=== PATIENT | female | born 1995 | race Caucasian/White ===

== ENCOUNTER 2019-03-18 09:55 | Emergency (ER) | payer BC, OTHER ==
[2019-03-18 10:15] VITALS: BP 125/70
[2019-03-18] MEDS ORDERED: LORATADINE 10 MG TABLET PO ONE (10:43)
[2019-03-18] MEDS ORDERED: PSEUDOEPHEDRINE HCL 30 MG TABLET PO ONE (10:43)
[2019-03-18] MEDS ORDERED: ACETAMINOPHEN 325 MG TABLET PO ONE (10:43)
--- NOTE | 2019-03-18 10:45 | ER Document Report ---
ED Flu Like - General Chief Complaint: Flu Symptoms Stated Complaint: FLU SYMPTOMS Time Seen by Provider: 03/18/19 10:38 Primary Care Provider: MELY DELGADO MD [COMMUNITY BASED STAFF] - Follow up in 3-5 days Mode of Arrival: Ambulatory Information source: Patient Notes: 23-year-old female presented to ED for cough cold congestion flulike symptoms. She states she also had a sore throat the last 7 days. Patient was nontoxic in appearance in the emergency room. Patient was oriented respirations regular nonlabored speaking in full sentences walks with even steady gait. TRAVEL OUTSIDE OF THE [place] IN LAST 30 DAYS: No - HPI Onset: Last week Timing/Duration: Intermittent Quality of pain: Achy Severity: Mild Pain Level: 1 Associated symptoms: Body/muscle aches, Nonproductive cough, Rhinnorhea, Sinus pain/drainage, Sore throat Similar symptoms previously: Yes Recently seen / treated by doctor: No - Related Data Allergies/Adverse Reactions: Penicillins Allergy (Mild, Verified 03/18/19 10:38) Past Medical History - General Information source: Patient - Social History Smoking Status: Never Smoker Chew tobacco use (# tins/day): No Frequency of alcohol use: None Drug Abuse: None Lives with: Family Family History: Reviewed & Not Pertinent Patient has suicidal ideation: No Patient has homicidal ideation: No - Past Medical History Cardiac Medical History: Reports: None Pulmonary Medical History: Reports: None EENT Medical History: Reports: None Neurological Medical History: Reports: None Endocrine Medical History: Reports: None Renal/ Medical History: Reports: None Malignancy Medical History: Reports: None GI Medical History: Reports: None Musculoskeletal Medical History: Reports None Skin Medical History: Reports None Psychiatric Medical History: Reports: None Traumatic Medical History: Reports: None Infectious Medical History: Reports: None Past Surgical History: Reports: Hx Urinary Tract Surgery - reflux repair - Immunizations Immunizations up to date: Yes Hx Diphtheria, Pertussis, Tetanus Vaccination: Yes Review of Systems - Review of Systems Constitutional: Chills, Fever, Recent illness EENT: Nose discharge, Sinus discharge, Throat pain Cardiovascular: No symptoms reported Respiratory: Cough Gastrointestinal: No symptoms reported Genitourinary: No symptoms reported Female Genitourinary: No symptoms reported Musculoskeletal: Muscle pain Skin: No symptoms reported Hematologic/Lymphatic: No symptoms reported Neurological/Psychological: No symptoms reported Physical Exam - Vital signs Vitals: Temp Pulse Resp BP Pulse Ox 98.1 F 86 16 125/70 97 03/18/19 09:56 03/18/19 09:56 03/18/19 09:56 03/18/19 09:56 03/18/19 09:56 Interpretation: Normal - General General appearance: Appears well, Alert - HEENT Head: Normocephalic, Atraumatic Eyes: Normal Pupils: PERRL Ears: Normal External canal: Normal Tympanic membrane: Normal Sinus: Normal Nasal: Purulent discharge, Swelling Mouth/Lips: Normal Mucous membranes: Normal Pharynx: Post nasal drainage Neck: Normal - Respiratory Respiratory status: No respiratory distress. No: Respiratory distress, Retractions, Tachypnea Chest status: Nontender Breath sounds: Nonproductive cough. No: Rales, Rhonchi, Stridor, Wheezing Chest palpation: Normal - Cardiovascular Rhythm: Regular Heart sounds: Normal auscultation Murmur: No - Abdominal Inspection: Normal Distension: No distension Bowel sounds: Normal Tenderness: Nontender Organomegaly: No organomegaly - Back Back: Normal, Nontender - Extremities General upper extremity: Normal inspection, Nontender, Normal color, Normal ROM, Normal temperature General lower extremity: Normal inspection, Nontender, Normal color, Normal ROM, Normal temperature, Normal weight bearing. No: Edilberto's sign - Neurological Neuro grossly intact: Yes Cognition: Normal Orientation: AAOx4 Katie Coma Scale Eye Opening: Spontaneous Carlotta Coma Scale Verbal: Oriented Carlotta Coma Scale Motor: Obeys Commands Carlotta Coma Scale Total: 15 Speech: Normal Motor strength normal: LUE, RUE, LLE, RLE Sensory: Normal - Psychological Associated symptoms: Normal affect, Normal mood - Skin Skin Temperature: Warm Skin Moisture: Dry Skin Color: Normal Course - Vital Signs Vital signs: Temp Pulse Resp BP Pulse Ox 98.1 F 86 16 125/70 97 03/18/19 10:04 03/18/19 10:04 03/18/19 10:04 03/18/19 10:04 03/18/19 10:04 Discharge - Discharge Clinical Impression: URI (upper respiratory infection) Qualifiers: URI type: unspecified viral URI Qualified Code(s): J06.9 - Acute upper respiratory infection, unspecified Condition: Stable Disposition: HOME, SELF-CARE Additional Instructions: UPPER RESPIRATORY ILLNESS: You have a viral infection of the respiratory passages -- a "cold." This common infection causes nasal congestion, drainage, and often sore throat and cough. It is highly contagious. The disease usually lasts about 10 to 14 days. There is no "cure" for the viral infection -- it must run its course. If there is a complication, such as bacterial infection in the nose, sinuses, middle ear, or bronchial tubes, antibiotics may be required. The antibiotics won't affect the virus. Drink plenty of fluids. A humidifier may help. An expectorant medication or decongestant may make you more comfortable. Use acetaminophen or ibuprofen for fever or aches. See the doctor if fever persists over two days, if there is any significant worsening of your symptoms, or if you simply fail to improve as expected. DECONGESTANT MEDICATION: A decongestant medicine has been prescribed. Often this medicine is combined in the same tablet with an antihistamine or expectorant. This type of medicine is helpful in treating a bad cold or sinus condition, as well as in treatment of the nasal congestion of hay fever. It is not of much benefit for lung infections. Decongestant medicines are related to stimulants. They can cause an inc rease in blood pressure and heart rate. Persons with heart disease and high blood pressure should not take decongestants without discussing this with the physician. If you develop palpitations, chest pain, headache, or tremors, stop the medicine and consult your physician. COUGH-SUPPRESSANT & EXPECTORANT MEDICATION: You are to use a cough medication as needed for relief of symptoms. This medicine is a combination of an expectorant (to make the mucous thinner and more easily "coughed up") and a cough suppressant (to reduce the frequency of coughing). The cough-suppressant medicine is related to narcotics. You may experience mild nausea and sleepiness. Some patients who are very sensitive to narcotics may have stomach pain from this medicine. Taking the medicine with food reduces these side effects. Do not drive or work with machinery until you know how this medicine affects you. The expectorant should have no side effects. Iodine-containing expectorants (such as organidin) should not be taken by persons with active thyroid disease unless approved by your doctor. Call the doctor if you develop shortness of breath, hives, rash, itching, lightheadedness, or severe nausea and vomiting. You were treated with Claritin 10 mg Sudafed 30 mg and you have been taken Mucinex 600 mg. These are all tsuq-xlx-hobstvl medications for cough cold congestion. You do need to call the go to the pharmacist to get the Sudafed from behind the counter please get a little red pills they are more effective. He could also use Flonase which is fymc-oll-jgmgbrh 1 spray each nostril twice a day. He could also use salt soda solution gargles. These will help to remove the drainage from the back your throat. Chloraseptic spray was mfsn-rfb-klsmpln that will also help with your sore throat. Salt and soda solution gargle 1 quart of water 1 tablespoon of salt 1 teaspoon of baking soda Mixed 3 ingredients together and boil for 1 minute Placed in a covered quart jar Use 1/2 ounce of cold solution to gargle 3 times a day FOLLOW-UP CARE: If you have been referred to a physician for follow-up care, call the physicians office for an appointment as you were instructed or within the next two days. If you experience worsening or a significant change in your symptoms, notify the physician immediately or return to the Emergency Department at any time for re-evaluation. Forms: Return to Work Referrals: MELY DELGADO MD [COMMUNITY BASED STAFF] - Follow up in 3-5 days
== END 2019-03-18 11:06 | disposition home or self-care (01) ==
LOC: ER 09:55
DX: J06.9 Acute upper respiratory infection, unspecified (principal); M79.10 Myalgia, unspecified site; Z88.0 Allergy status to penicillin
CPT/HCPCS: 99283

== ENCOUNTER 2019-05-23 18:49 | Emergency (ER) | payer OTHER ==
--- NOTE | 2019-05-23 19:00 | ER Document Report ---
ED Flu Like - General Chief Complaint: Flu Symptoms Stated Complaint: FLU SYMPTOMS Time Seen by Provider: 05/23/19 18:55 Mode of Arrival: Ambulatory Information source: Patient Notes: 24-year-old female presented to ED for complaint of cough cold congestion and diarrhea. Is alert oriented respirations regular nonlabored speaking in full sentences. She does have obvious signs and symptoms of cough and cold or possible flu. Flu test urine test and chest x-ray were completed and were negative. TRAVEL OUTSIDE OF THE [place] IN LAST 30 DAYS: No - HPI Onset: Other Timing/Duration: Intermittent - 3 days ago Quality of pain: Achy, Burning, Sharp Severity: Moderate Pain Level: 3 Associated symptoms: Body/muscle aches, Chills, Productive cough, Diarrhea, Fever, Rhinnorhea, Sinus pain/drainage Similar symptoms previously: Yes Recently seen / treated by doctor: No - Related Data Allergies/Adverse Reactions: Penicillins Allergy (Mild, Verified 05/23/19 19:00) Past Medical History - General Information source: Patient - Social History Smoking Status: Former Smoker Frequency of alcohol use: Occasional Drug Abuse: None Occupation: None Lives with: Family Family History: Reviewed & Not Pertinent Patient has suicidal ideation: No Patient has homicidal ideation: No - Past Medical History Cardiac Medical History: Reports: Hx Hypertension - Pulmonary Medical History: Reports: None EENT Medical History: Reports: None Neurological Medical History: Reports: None Endocrine Medical History: Reports: None Renal/ Medical History: Reports: Other - Kidney reflux and post eclampsia Malignancy Medical History: Reports: None - Cramps here during GI Medical History: Reports: None Musculoskeletal Medical History: Reports Hx Musculoskeletal Deformity, Reports Hx Musculoskeletal Trauma Skin Medical History: Reports None Psychiatric Medical History: Reports: Hx Depression - depression Traumatic Medical History: Reports: Hx Fractures - Hip and knee Infectious Medical History: Reports: None Past Surgical History: Reports: Hx Section, Hx Urinary Tract Surgery - reflux repair - Immunizations Immunizations up to date: Yes Hx Diphtheria, Pertussis, Tetanus Vaccination: Yes - 2015 Review of Systems - Review of Systems Constitutional: No symptoms reported EENT: Nose congestion, Nose discharge, Sinus pressure, Sinus discharge Cardiovascular: No symptoms reported Respiratory: Cough Gastrointestinal: Diarrhea Genitourinary: No symptoms reported Female Genitourinary: No symptoms reported Musculoskeletal: No symptoms reported Skin: No symptoms reported Hematologic/Lymphatic: No symptoms reported Neurological/Psychological: No symptoms reported -: Yes All other systems reviewed and negative Physical Exam - Vital signs Vitals: Temp Pulse Resp BP Pulse Ox 98.2 F 99 18 128/63 H 96 05/23/19 18:53 05/23/19 18:53 05/23/19 18:53 05/23/19 18:53 05/23/19 18:53 Interpretation: Normal - General General appearance: Appears well, Alert - HEENT Head: Normocephalic, Atraumatic Eyes: Normal Pupils: PERRL Ears: Normal External canal: Normal Tympanic membrane: Normal Sinus: Normal Nasal: Purulent discharge, Swelling Mouth/Lips: Normal Mucous membranes: Normal Pharynx: Normal Neck: Normal - Respiratory Respiratory status: No respiratory distress Chest status: Nontender Breath sounds: Productive cough Chest palpation: Normal - Cardiovascular Rhythm: Regular Heart sounds: Normal auscultation Murmur: No - Abdominal Inspection: Normal Distension: No distension Bowel sounds: Normal Tenderness: Nontender Organomegaly: No organomegaly - Back Back: Normal, Nontender - Extremities General upper extremity: Normal inspection, Nontender, Normal color, Normal ROM, Normal temperature General lower extremity: Normal inspection, Nontender, Normal color, Normal ROM, Normal temperature, Normal weight bearing. No: Edilberto's sign - Neurological Neuro grossly intact: Yes Cognition: Normal Orientation: AAOx4 Katie Coma Scale Eye Opening: Spontaneous Bondurant Coma Scale Verbal: Oriented Bond[place]ant Coma Scale Motor: Obeys Commands Katie Coma Scale Total: 15 Speech: Normal Motor strength normal: LUE, RUE, LLE, RLE Sensory: Normal - Psychological Associated symptoms: Normal affect, Normal mood - Skin Skin Temperature: Warm Skin Moisture: Dry Skin Color: Normal Course - Re-evaluation Re-evalutation: 05/23/19 20:15 After performing a Medical Screening Examination, I estimate there is LOW risk for ACUTE CORONARY SYNDROME, RESPIRATORY FAILURE, SEPSIS OR MENINGITIS, thus I consider the discharge disposition reasonable. I have reevaluated this patient multiple times and no significant life threatening changes are noted. The patient and I have discussed the diagnosis and risks, and we agree with discharging home with close follow-up. We also discussed returning to the Emergency Department immediately if new or worsening symptoms occur. We have discussed the symptoms which are most concerning (e.g., changing or worsening pain, trouble swallowing or breathing, neck stiffness, fever) that necessitate immediate return. - Vital Signs Vital signs: Temp Pulse Resp BP Pulse Ox 98.2 F 99 18 128/63 H 96 05/23/19 18:53 05/23/19 18:53 05/23/19 18:53 05/23/19 18:53 05/23/19 18:53 - Laboratory Laboratory results interpreted by me: 05/23/19 19:20 Urine Protein 30 H - Diagnostic Test Radiology reviewed: Image reviewed, Reports reviewed Discharge - Discharge Clinical Impression: Viral respiratory illness Diarrhea Qualifiers: Diarrhea type: unspecified type Qualified Code(s): R19.7 - Diarrhea, unspecified Condition: Stable Disposition: HOME, SELF-CARE Instructions: Use of Njen-Kqj-Umllvtu Ibuprofen ([facility]) Additional Instructions: Viral Syndrome The physician has diagnosed a viral infection. Viruses not only cause "colds," but can cause many different symptoms including generalized aching, fever, headache, cough, diarrhea, nausea, vomiting, and fatigue. The treatment, for the most part, is simply relief of symptoms. This means that antibiotics are usually not given. Rest, fluids, pain medications and, occasionally, medication for the specific symptoms that are most bothersome will be prescribed. Use good handwashing to avoid passing the virus to others. Shared toys should be cleaned with disinfectant. Clean the toilets, sinks, and counter surfaces in bathrooms. Launder clothing in hot water. Contact the physician if you develop any new or unusual symptoms such as severe headache, stiff neck, high fever, chest pain, productive cough, or shortness of breath. You should be rechecked if you don't see marked improvement within seven to 10 days. UPPER RESPIRATORY ILLNESS: You have a viral infection of the respiratory passages -- a "cold." This common infection causes nasal congestion, drainage, and often sore throat and cough. It is highly contagious. The disease usually lasts about 10 to 14 days. There is no "cure" for the viral infection -- it must run its course. If there is a complication, such as bacterial infection in the nose, sinuses, middle ear, or bronchial tubes, antibiotics may be required. The antibiotics won't affect the virus. Drink plenty of fluids. A humidifier may help. An expectorant medication or decongestant may make you more comfortable. Use acetaminophen or ibuprofen for fever or aches. See the doctor if fever persists over two days, if there is any significant worsening of your symptoms, or if you simply fail to improve as expected. You have been recommended treatment with Claritin 10 mg Sudafed 30 mg and Mucinex 600 mg. These are all osfz-lhv-tlzccxe medications for cough cold congestion. You do need to call the go to the pharmacist to get the Sudafed from behind the counter please get a little red pills they are more effective. You could also use Flonase which is avrz-fjz-ritqgtv 1 spray each nostril twice a day. You could also use salt soda solution gargles. These will help to remove the drainage from the back your throat. Chloraseptic spray was odyo-aya-uqtwlar that will also help with your sore throat. Salt and soda solution gargle 1 quart of water 1 tablespoon of salt 1 teaspoon of baking soda Mixed 3 ingredients together and boil for 1 minute Placed in a covered quart jar Use 1/2 ounce of cold solution to gargle 3 times a day USE OF ACETAMINOPHEN (Tylenol): Acetaminophen may be taken for pain relief or fever control. It's much safer than aspirin, offering a wider range of "safe" dosages. It is safe during . Some brand names are Tylenol, Panadol, Datril, Anacin 3, Tempra, and Liquiprin. Acetaminophen can be repeated every four hours. The following are maximum recommended dosages: >89 pounds or adults 650 mg to 900 mg Acetaminophen can be repeated every four hours. Maximum dose not to exceed 4000 mg a day. FOLLOW-UP CARE: If you have been referred to a physician for follow-up care, call the physicians office for an appointment as you were instructed or within the next two days. If you experience worsening or a significant change in your symptoms, notify the physician immediately or return to the Emergency Department at any time for re-evaluation. Call your doctor within the next 24 to 48 hours and schedule appointment within the next 3 to 5 days.
[2019-05-23 19:36] LABS: APPEARANCE,URINE SLIGHTLY-CLOUDY; BILIRUBIN,URINE NEGATIVE (NEGATIVE); COLOR,URINE YELLOW; GLUCOSE, URINE NEGATIVE (NEGATIVE); KETONES,URINE NEGATIVE (NEGATIVE); PROTEIN,URINE 30 mg/dL (NEGATIVE); UROBILINOGEN,URINE NEGATIVE mg/dL (<2.0)
--- NOTE | 2019-05-23 19:48 | RADIOLOGY REPORT (SQ) ---
EXAM DESCRIPTION: CHEST 2 VIEWS COMPLETED DATE/TIME: 05/23/2019 7:29 pm REASON FOR STUDY: Cough congestion fever COMPARISON: None. NUMBER OF VIEWS: Two view. TECHNIQUE: Frontal and lateral radiographic views of the chest acquired. LIMITATIONS: None. FINDINGS: LUNGS AND PLEURA: Peribronchial cuffing and interstitial changes. No consolidation, effus ion, or pneumothorax. MEDIASTINUM AND HILAR STRUCTURES: No masses. No contour abnormalities. HEART AND VASCULAR STRUCTURES: Heart normal in size and contour. No evidence for failure. BONES: No acute findings. HARDWARE: None in the chest. OTHER: No other significant finding. IMPRESSION: REACTIVE AIRWAY DISEASE VERSUS VIRAL SYNDROME. NO CONSOLIDATION. TECHNICAL DOCUMENTATION: JOB ID: [id number] [id number] 2010 [employer]- All Rights Reserved Reading location - IP/workstation name: [email or web address]
[2019-05-23 19:52] LABS: A TYPE INFLUENZA AG NEGATIVE (NEGATIVE); B INFLUENZA AG NEGATIVE (NEGATIVE)
[2019-05-23 20:17] VITALS: BP 132/59
== END 2019-05-23 20:15 | disposition home or self-care (01) ==
LOC: ER 18:49
DX: J98.8 Other specified respiratory disorders (principal); B97.89 Other viral agents as the cause of diseases classified elsewhere; R19.7 Diarrhea, unspecified; R05 Cough; M79.10 Myalgia, unspecified site; R50.9 Fever, unspecified; J34.89 Other specified disorders of nose and nasal sinuses; R09.81 Nasal congestion; Z87.891 Personal history of nicotine dependence; Z88.0 Allergy status to penicillin
CPT/HCPCS: 71046; 81001; 81025; 87804; 99283

== ENCOUNTER 2019-08-13 07:28 | Emergency (ER) | payer OTHER ==
[2019-08-13 07:32] VITALS: BP 125/78
[2019-08-13 08:11] LABS: APPEARANCE,URINE SLIGHTLY-CLOUDY; BILIRUBIN,URINE NEGATIVE (NEGATIVE); COLOR,URINE YELLOW; GLUCOSE, URINE NEGATIVE (NEGATIVE); KETONES,URINE NEGATIVE (NEGATIVE); LEUKOCYTE ESTERASE,URINE TRACE (NEGATIVE); NITRITE,URINE NEGATIVE (NEGATIVE); PROTEIN,URINE 30 mg/dL (NEGATIVE); UROBILINOGEN,URINE NEGATIVE mg/dL (<2.0)
--- NOTE | 2019-08-13 08:22 | ER Document Report ---
ED Neck/Back Problem - General Chief Complaint: Back Pain Stated Complaint: LOW BACK PAIN Time Seen by Provider: 08/13/19 08:06 Notes: CHIEF COMPLAINT: Left lower back pain HPI: 24-year-old female presenting to the emergency department complaining of left lower back pain that woke her from sleep around 3 AM. Reports it as a pinching sensation. Discomfort is worse with movement. No flank or abdominal pain. Denies dysuria. Denies nausea vomiting. Denies fever. Patient was concerned about shingles, states she has had shingles before but has not seen a rash. Took no medication for her symptoms. Patient also reports a history of UTI ROS: See HPI - all other systems were reviewed and are otherwise negative Constitutional: no fever Eyes: no drainage, no blurred vision ENT: no runny nose, no sore throat Cardiovascular: no chest pain Resp: no SOB, no cough GI: no vomiting, no diarrhea, no abdominal pain : no dysuria Integumentary: no rash Allergy: no hives Musculoskeletal: no extremity pain or swelling, positive back pain Neurological: no numbness/tingling, no weakness MEDICATIONS: I agree with the patient medications as charted by the RN. ALLERGIES: I agree with the allergies as charted by the RN. PAST MEDICAL HISTORY/PAST SURGICAL HISTORY: Reviewed and agree as charted by RN. SOCIAL HISTORY: Reviewed and agree as charted by RN. FAMILY HISTORY: No significant familial comorbid conditions directly related to patient complaint EXAM: Reviewed vital signs as charted by RN. CONSTITUTIONAL: Alert and oriented and responds appropriately to questions. Well-appearing; well-nourished, no acute distress HEAD: Normocephalic; atraumatic EYES: Conjunctivae clear, sclerae non-icteric ENT: normal nose; no rhinorrhea; moist mucous membranes; pharynx without lesions noted, no uvula edema or deviation, no tonsillar hypertrophy, phonation normal NECK: Supple without meningismus; non-tender; no cervical lymphadenopathy, no masses CARD: RRR; no murmurs, no clicks, no rubs, no gallops; symmetric distal pulses RESP: Normal chest excursion without splinting or tachypnea; breath sounds clear and equal bilaterally; no wheezes, no rhonchi, no rales, pulse oximetry 98% on room air not hypoxic ABD/GI: Normal bowel sounds; non-distended; soft, non-tender, no rebound, no guarding; no palpable organomegaly or masses. BACK: The back appears normal and is non-tender to palpation directly over the lumbar and thoracic spine. There is mild left lateral lumbar muscular tenderness on palpation with no visible rash, there is no CVA tenderness EXT: Normal ROM in all joints; non-tender to palpation; no cyanosis, no effusi ons, no edema SKIN: Normal color for age and race; warm; dry; good turgor; no acute lesions noted NEURO: Moves all extremities equally; Motor and sensory function intact PSYCH: The patient's mood and manner are appropriate. Grooming and personal hygiene are appropriate. MDM: 24-year-old female with left lower back pain, there is some reproducibility to the discomfort suggesting a muscular origin, unlikely to be kidney stone as she has reproducible pain, will await urinalysis to see if patient has significant hematuria which would suggest need for further imaging, she has no flank or abdominal pain. No fevers TRAVEL OUTSIDE OF THE [place] IN LAST 30 DAYS: No - Related Data Allergies/Adverse Reactions: Penicillins Allergy (Mild, Verified 05/23/19 19:00) Past Medical History - Social History Smoking Status: Never Smoker Family History: Reviewed & Not Pertinent Patient has homicidal ideation: No - Past Medical History Cardiac Medical History: Reports: Hx Hypertension - Musculoskeletal Medical History: Reports Hx Musculoskeletal Deformity, Reports Hx Musculoskeletal Trauma Psychiatric Medical History: Reports: Hx Depression - depression Traumatic Medical History: Reports: Hx Fractures - Hip and knee Infectious Medical History: Denies: Hx MRSA Past Surgical History: Reports: Hx Section, Hx Urinary Tract Surgery - reflux repair - Immunizations Immunizations up to date: Yes Hx Diphtheria, Pertussis, Tetanus Vaccination: Yes - 2015 Physical Exam - Vital signs Vitals: Temp Pulse Resp BP Pulse Ox 97.7 F 76 16 125/78 97 08/13/19 07:31 08/13/19 07:31 08/13/19 07:31 08/13/19 07:31 08/13/19 07:31 Course - Re-evaluation Re-evalutation: 08/13/19 08:30 Urinalysis does not show evidence of significant hematuria or leukocytosis to suggest kidney stone or UTI. Will treat with anti-inflammatories at this time give patient precautions for return for worsening pain or onset of rash - Vital Signs Vital signs: Temp Pulse Resp BP Pulse Ox 98.2 F 76 16 125/78 97 08/13/19 07:53 08/13/19 07:31 08/13/19 07:31 08/13/19 07:31 08/13/19 07:31 - Laboratory Laboratory results interpreted by me: 08/13/19 07:35 Urine Protein 30 H Ur Leukocyte Esterase TRACE H Discharge - Discharge Clinical Impression: Lower back pain Qualifiers: Chronicity: acute Back pain laterality: left Sciatica presence: without sciatica Qualified Code(s): M54.5 - Low back pain Condition: Stable Disposition: HOME, SELF-CARE Additional Instructions: The urinalysis did not show evidence of infection today. There was not significant blood to suggest kidney stone at this time. Take the Voltaren to help with the pain and discomfort use warm compresses to the lower back to help with spasm and pain. Follow-up with your primary care provider in 2 to 3 days for recheck and reevaluation of symptoms. If you develop a rash to the area either follow-up sooner with your PCP or return for reevaluation. If you develop nausea vomiting or fever return to the emergency department Prescriptions: Diclofenac Sodium [Voltaren 50 Mg Tablet.] 50 mg PO BID #20 tablet. Referrals: NÉSTOR BARONE MD [COMMUNITY BASED STAFF] - Follow up as needed
== END 2019-08-13 08:30 | disposition home or self-care (01) ==
LOC: ER 07:28
DX: M54.5 Low back pain (principal); Z88.0 Allergy status to penicillin
CPT/HCPCS: 81001; 81025; 99283

== ENCOUNTER 2019-12-15 14:32 | Emergency (ER) | payer OTHER ==
[2019-12-15] MEDS ORDERED: HYDROCODONE/ACETAMINOPHEN 5-325 MG TABLET PO ONE (14:56)
--- NOTE | 2019-12-15 15:00 | ER Document Report ---
ED Extremity Problem, Lower - General Chief Complaint: Fall Injury Stated Complaint: FALL/RIGHT ANKLE PAIN, SWELLING Time Seen by Provider: 12/15/19 14:50 Primary Care Provider: WILFREDO ADAMS MD [ACTIVE STAFF] - 12/17/19 Mode of Arrival: Wheelchair Information source: Patient Notes: 24-year-old female presents to ED for complaint of pain to the right foot and ankle. She states she was carrying her son out of the house when she tripped over a loose brick. She states she started to fall so she twisted herself to protect her son and ended up landing on her ankle. She states when she landed she heard multiple cracks and then fell to the ground. She stated the the son does not have any injuries because he landed on top of her. She is alert oriented respirations regular nonlabored speaking in full sentences. Her right ankle is very swollen bruised and tender to palpation. Was immediately elevated and ice applied and patient was sent to x-ray after receiving a De Peyster for her pain REVIEW OF SYSTEMS: CONSTITUTIONAL : Denies fever, chills, or sweats. Denies recent illness. EENT: Denies eye, ear, throat, or mouth pain or symptoms. Denies nasal or si nus congestion. CARDIOVASCULAR: Denies chest pain. RESPIRATORY: Denies cough, cold, or chest congestion. Denies shortness of breath, difficulty breathing, or wheezing. GASTROINTESTINAL: Denies abdominal pain. Denies nausea, vomiting, or diarrhea. Denies constipation. GENITOURINARY: Denies difficulty urinating, painful urination, burning, frequency, or blood in urine. FEMALE GENITOURINARY: Denies vaginal bleeding, abnormal or irregular periods. MUSCULOSKELETAL: Patient steps she tripped over a loose brick while carrying her son. She states she twisted herself to protect her son and fell and heard multiple pops and cracks when she fell. She does have a very swollen ecchymotic tender foot and ankle SKIN: Denies rash or skin lesions. HEMATOLOGIC : Denies easy bruising or bleeding. LYMPHATIC: Denies swollen, enlarged glands. NEUROLOGICAL: Denies altered mental status or loss of consciousness. Denies headache. Denies weakness or paralysis or loss of use of either side. Denies problems with gait or speech. Denies sensory or motor loss. PSYCHIATRIC: Denies anxiety or stress or depression. ALL OTHER SYSTEMS REVIEWED AND NEGATIVE. PHYSICAL EXAMINATION: GENERAL: Well-appearing, well-nourished and in no acute distress. HEAD: Atraumatic, normocephalic. EYES: Pupils equal round and reactive to light, extraocular movements intact, sclera anicteric, conjunctiva are normal. ENT: nares patent, oropharynx clear without exudates. Moist mucous membranes. NECK: Normal range of motion, supple without lymphadenopathy LUNGS: Breath sounds clear to auscultation bilaterally and equal. No wheezes rales or rhonchi. HEART: Regular rate and rhythm without murmurs ABDOMEN: Soft, nontender, normoactive bowel sounds. No guarding, no rebound. No masses appreciated. EXTREMITIES: Very swollen tender ecchymotic left ankle. She does have palpable pedal pulses. NEUROLOGICAL: No focal neurological deficits. Moves all extremities spontaneously and on command. PSYCH: Normal mood, normal affect. SKIN: Warm, Dry, normal turgor, no rashes or lesions noted. TRAVEL OUTSIDE OF THE [place] IN LAST 30 DAYS: No - HPI Patient complains to provider of: Injury, Pain, Swelling Location: Ankle, Foot Occurred: Just prior to arrival Where: Home, Outdoors Onset/Duration: Sudden Quality of pain: Sharp, Throbbing Severity: Moderate Pain Level: 3 Context: Twisted Recent injury: Yes Associated symptoms: Ware a crack, Unable to bear weight Exacerbated by: Hanging down, Movement, Other - Unable to walk Relieved by: Elevation, Ice, Rest - Related Data Allergies/Adverse Reactions: Penicillins Allergy (Mild, Verified 12/15/19 14:56) Past Medical History - General Information source: Patient - Social History Smoking Status: Never Smoker Frequency of alcohol use: None Drug Abuse: None Lives with: Alone - inflant son Family History: Reviewed & Not Pertinent Patient has suicidal ideation: No Patient has homicidal ideation: No - Past Medical History Cardiac Medical History: Reports: Hx Hypertension - Pulmonary Medical History: Reports: None EENT Medical History: Reports: None Neurological Medical History: Reports: None Endocrine Medical History: Reports: None Renal/ Medical History: Reports: None Malignancy Medical History: Reports: None GI Medical History: Reports: None Musculoskeletal Medical History: Reports Hx Musculoskeletal Deformity, Reports Hx Musculoskeletal Trauma Skin Medical History: Reports None Psychiatric Medical History: Reports: Hx Depression - depression Traumatic Medical History: Reports: Hx Fractures - Hip and knee Past Surgical History: Reports: Hx Section, Hx Urinary Tract Surgery - reflux repair - Immunizations Immunizations up to date: Yes Hx Diphtheria, Pertussis, Tetanus Vaccination: Yes - 2015 Physical Exam - Vital signs Vitals: Temp Pulse Resp BP Pulse Ox 98.6 F 96 20 142/99 H 100 12/15/19 14:46 12/15/19 14:46 12/15/19 14:46 12/15/19 14:46 12/15/19 14:46 Course - Re-evaluation Re-evalutation: 12/15/19 19:[address] Adams at 1610 today concerning her trimalleolar fracture with widening of the medial mortise. I did explain to him that it looked like it was a very unstable fracture did he need to come in and admit the patient. He stated no this was something that could be splinted in a stirrup splint and posterior ankle have her not weight-bear and he would see her morning. Patient was treated with a stirrup and posterior splint she was given crutches she was instructed not to weight-bear not to touch the toe to the floor. She was medicated with De Peyster and discharged home with a De Peyster dispense pack. Patient did try to call her primary care doctor and [facility] to get approval to be seen by the export specialist on morning she did say that [facility] was not going to approve her being follow-up with orthopedic for at least 5 to 10 days. I did explain to patient if she could not be seen by the orthopedic on as Dr. Adams, she should be seen by an another hospital or provider as this appeared to be an unstable fracture and she should not walk on this leg. Patient verbalized understanding of these instructions and stated she would follow-up promptly. 12/15/19 19:51 Patient was given a written report of her x-ray as well as a disc of her x-ray to follow-up. She was also given a De Peyster dispense pack. She was assisted to be loaded into her car with her mother driving her. - Vital Signs Vital signs: Temp Pulse Resp BP Pulse Ox 98.4 F 76 19 138/82 H 99 12/15/19 17:01 12/15/19 17:01 12/15/19 17:01 12/15/19 16:59 12/15/19 17:01 - Diagnostic Test Radiology reviewed: Image reviewed, Reports reviewed Discharge - Discharge Clinical Impression: Fracture tibia/fibula Qualifiers: Encounter type: initial encounter Fracture type: closed Laterality: right Qualified Code(s): S82.201A - Unspecified fracture of shaft of right tibia, initial encounter for closed fracture Condition: Stable Disposition: HOME, SELF-CARE Additional Instructions: Fracture of Distal Fibula You have a fracture at the end of the fibula, the smaller bone in the lower leg. The fracture is across the bony bump on the outer side of the ankle. This fracture will usually heal well, but must be protected from the pull of ligaments and tendons at the ankle. If this fracture rotates out of position (or is felt likely to rotate), it must be operated on. Initially, the extremity should be kept elevated, with ice packs applied frequently. This fracture is usually treated with a cast or walking boot. If a walking boot has been selected, it's critical that it NOT be removed without the doctor's approval, not even for sleeping or baths. Healing of this fracture takes about four to eight weeks. Younger patients heal more quickly. An X-ray is usually required during healing to check for complications and to assess healing. Call the doctor or return at once if there is severe swelling, increasing pain, or numbness in the foot. Fractured Tibia You have a fracture of the lateral malleolus. The physician has assessed the seriousness of this fracture and has determined that no operation or hospitalization is required. The fracture should heal well, but must be monitored by re-examination and possibly X-rays. The initial treatment of this fracture is immobilization, ice packs, and elevation. A tibial fracture requires protection for about four to eight weeks, depending on the nature of the fracture and the age of the patient. Usually, a long-leg cast is required. Often no weight-bearing can be allowed at first despite casting. This type of fracture sometimes does not heal well. You MUST follow the doctors instructions, and call the doctor if you have any problems. Call the doctor or return at once if pain becomes severe, or if numbness or weakness develops in the foot or toes. Splint Pending Casting Your injury can't be casted until the swelling has subsided. Therefore, a temporary splint has been placed to protect the injury. Full use of an injured area is not possible in a splint. You should follow the doctor's instructions concerning rest, ice, and elevation of the injury. Never do anything which causes pain under the splint. Keep the splint on ALL THE TIME until you return for casting. If there is unexpected severe pain, or numbness, discoloration, or swelling beyond the splint, you should return at once. USE OF CRUTCHES: The doctor has recommended that you not bear weight at this time. You will need to use crutches. Adjust the crutches so the tops come to about two inches under the armpit while you are standing upright. Use your hands -- not your armpits -- to support your weight. To get into a chair, support yourself with one crutch on the injured side. Hold the chair with the other hand, then lower yourself while putting all your weight on the good leg. Going up stairs is `good leg up, step up, then bring up crutches and bad leg.' Down stairs is `bad leg and crutches down, then bring good leg down.' If you develop numbness or swelling in an arm or hand, you are using the crutches incorrectly. Return if you are having any problems with the crutches. ICE & ELEVATION: Apply ice packs frequently against the painful area. Many different schedules are recommended, such as "20 minutes on, 20 minutes off" or "one hour ice, two hours rest." If you need to work, you may need to go longer between ice treatments. You should plan to have the area ice packed AT LEAST one-fourth of the time. The ice should be applied over the wrap, tape, or splint, or over a layer of cloth -- not directly against the skin. Some ice bags have a built-in cloth and can be put directly on the skin. Your injured part should be elevated as much as possible over the next 48 hours. Try to keep the injury above the level of the heart. Avoid use of the injured area. Elevation and rest will decrease the swelling. USE OF [id number] IBUPROFEN: Ibuprofen (Advil, Nuprin, Medipren, Motrin IB) is a medication for fever and pain control. In addition, it has anti- inflammatory effects which may be beneficial, especially in the treatment of injuries. It's best to take ibuprofen with food. Persons with ulcer disease or allergy to aspirin should notify their physician of this before taking ibuprofen. Ibuprofen can be given every four to six hours, for a total of four doses daily. Age Pain or fever dose Antiinflammatory dose 6-8 yr 200 mg (1 tab) 200 mg (1 tab) 9-11 yr 200 mg (1 tab) 200-400 mg (1-2 tab) 11-14 yr 200-400 mg (1-2 tab) 400 mg (2 tab) 15-adult 400 mg (2 tab) 600 mg (3 tab) ORAL NARCOTIC MEDICATION: You have been given a De Peyster dispense pack for pain control. This medication is a narcotic. It's best taken with food, as nausea can result if taken on an empty stomach. Don't operate machinery or drive within six hours of taking this medication. Do not combine this medicine with alcohol, or with any medication which can cause sedation (such as cold tablets or sleeping pills) unless you get permission from the physician. Narcotics tend to cause constipation. If possible, drink plenty of fluids and eat a diet high in fiber and fruits. Please be aware that prescription narcotics also have the potential for abuse. People become addicted to these medications because of the general sense of wellbeing that they induce. This feeling along with a significant reduction in tension, anxiety, and aggression provides a stimulating seductive quality to these drugs. Once your pain is under control, we encourage you to discard your unused narcotics. FOLLOW-UP CARE: If you have been referred to a physician for follow-up care, call the physicians office for an appointment as you were instructed or within the next two days. If you experience worsening or a significant change in your symptoms, notify the physician immediately or return to the Emergency Department at any time for re-evaluation. Forms: Elevated Blood Pressure, Special Work Note Referrals: WILFREDO ADAMS MD [ACTIVE STAFF] - 12/17/19
--- NOTE | 2019-12-15 16:11 | RADIOLOGY REPORT (SQ) ---
EXAM DESCRIPTION: ANKLE RIGHT COMPLETE IMAGES COMPLETED DATE/TIME: 12/15/2019 3:38 pm REASON FOR STUDY: fell head multiple crack pain swelling COMPARISON: None. NUMBER OF VIEWS: Three views. TECHNIQUE: AP, lateral, and oblique radiographic images acquired of the right ankle. LIMITATIONS: None. FINDINGS: Trimalleolar fracture with widening of the medial mortise. Medial displacement of the med ial malleolar fragment. IMPRESSION: Trimalleolar fracture. TECHNICAL DOCUMENTATION: JOB ID: [id number] 2010 [employer]- All Rights Reserved Reading location - IP/workstation name: [email or web address]
[2019-12-15] MEDS ORDERED: HYDROCODONE/ACETAMINOPHEN 5-325 MG (6 TAB/ER DISP) PO PRN (16:19)
[2019-12-15 17:00] VITALS: BP 138/82
== END 2019-12-15 17:00 | disposition home or self-care (01) ==
LOC: ER 14:32
DX: S82.851A Displaced trimalleolar fracture of right lower leg, initial encounter for closed fracture (principal); W10.9XXA Fall (on) (from) unspecified stairs and steps, initial encounter; Y93.89 Activity, other specified; Y92.009 Unspecified place in unspecified non-institutional (private) residence as the place of occurrence of the external cause
CPT/HCPCS: 99283

== ENCOUNTER 2019-12-24 06:20 | Day surgery (SDC) | payer OTHER ==
[2019-12-24] MEDS ORDERED: CEFAZOLIN 2 GM/D5W RTU 2 GM/50 ML RTUPB IV PRN (06:59)
[2019-12-24] MEDS ORDERED: TRANEXAMIC ACID 1,000 MG in DEXTROSE 5%-WATER 50 ML IV PRN (07:00)
[2019-12-24] MEDS ORDERED: OXYCODONE HCL SR 10 MG TABLET PO PRN (07:00)
[2019-12-24] MEDS ORDERED: CEFAZOLIN 2 GM/D5W RTU 2 GM/50 ML RTUPB IV ONE (07:55)
[2019-12-24] MEDS ORDERED: OXYCODONE HCL SR 10 MG TABLET PO ONE (07:55)
[2019-12-24 08:21] LABS: APPEARANCE,URINE SLIGHTLY-CLOUDY; BILIRUBIN,URINE NEGATIVE (NEGATIVE); GLUCOSE, URINE NEGATIVE (NEGATIVE); KETONES,URINE NEGATIVE (NEGATIVE); LEUKOCYTE ESTERASE,URINE TRACE (NEGATIVE); NITRITE,URINE NEGATIVE (NEGATIVE); PROTEIN,URINE 100 mg/dL (NEGATIVE); URINE SPECIFIC GRAVITY 1.031
[2019-12-24 08:22] LABS: COLOR,URINE DARK YELLOW
[2019-12-24 09:00] LABS: ABSOLUTE EOSINOPHILS # (AUTO) 0.3 10^3/uL (0.0-0.6); ABSOLUTE LYMPHOCYTES (AUTO) 0.9 10^3/uL (0.5-4.7); ABSOLUTE MONOCYTES (AUTO) 0.8 10^3/uL (0.1-1.4); ABSOLUTE NEUT (AUTO) 5.5 10^3/uL (1.7-8.2); BASOPHILS % (AUTO) 0.6 % (0-2); EOSINOPHILS % (AUTO) 4.1 % (0-6); HEMATOCRIT 38.6 % (36.0-47.0); HEMOGLOBIN 12.9 g/dL (12.0-15.5); MEAN CORPUSCULAR HEMOGLOBIN 28.2 pg (27.0-33.4); MEAN CORPUSCULAR HGB CONC 33.4 g/dL (32.0-36.0); MEAN CORPUSCULAR VOLUME 85 fl (80-97); MONOCYTES % (AUTO) 10.7 % (3-13); PLATELET COUNT 389 10^3/uL (150-450); RED BLOOD COUNT 4.57 10^6/uL (3.72-5.28); RED CELL DISTRIBUTION WIDTH 13.5 % (11.5-14.0); SEGMENTED NEUTROPHILS % (AUTO) 72.6 % (42-78); TOTAL CELLS COUNTED % (AUTO) 100 %; WHITE BLOOD COUNT 7.6 10^3/uL (4.0-10.5)
[2019-12-24 09:14] LABS: ANION GAP 8 (5-19); BLOOD UREA NITROGEN 14 mg/dL (7-20); CALCIUM 9.8 mg/dL (8.4-10.2); CARBON DIOXIDE 28 mmol/L (22-30); CHLORIDE 103 mmol/L (98-107); GLUCOSE 94 mg/dL (75-110); POTASSIUM 4.6 mmol/L (3.6-5.0)
[2019-12-24] MEDS ORDERED: FENTANYL CITRATE INJ/PF 100 MCG/2 ML AMPUL ONE ×2 (09:22→12:33)
[2019-12-24] MEDS ORDERED: ROPIVACAINE HCL 0.5% INJ/PF (5 MG/1 ML) 30 ML SDV ONE (09:22)
[2019-12-24] MEDS ORDERED: MIDAZOLAM 2 MG/2 ML INJ ONE ×2 (09:22→09:48)
[2019-12-24] MEDS ORDERED: LIDOCAINE 2% INJ-PF (100 MG/5 ML) SYRINGE ONE (09:22)
[2019-12-24] MEDS ORDERED: LIDOCAINE 2% INJ-PF (20 MG/ML) 10 ML AMPUL ONE (09:25)
[2019-12-24] MEDS ORDERED: PROPOFOL INJ 200 MG/20 ML VIAL IV ONE (09:48)
[2019-12-24] MEDS ORDERED: DEXAMETHASONE SOD PHOSPHATE INJ 4 MG/1 ML VIAL ONE (09:48)
[2019-12-24] MEDS ORDERED: ONDANSETRON HCL INJ/PF 4 MG/2 ML SDV ONE (09:48)
[2019-12-24] MEDS ORDERED: FENTANYL CITRATE INJ/PF 250 MCG/5 ML AMPULE ONE (09:48)
[2019-12-24] MEDS ORDERED: LIDOCAINE 1% INJ-PF (10 MG/ML) 30 ML SDV ONE (09:52)
[2019-12-24] MEDS ORDERED: BUPIVACAINE HCL 0.5 % INJ/PF 30 ML SDV ONE (09:52)
[2019-12-24] MEDS ORDERED: PROMETHAZINE HCL INJ 25 MG/1 ML VIAL IV PRN (10:18)
[2019-12-24] MEDS ORDERED: MORPHINE SULFATE 10 MG/ML INJ IV PRN ×3 (10:18→12:48)
[2019-12-24] MEDS ORDERED: DIPHENHYDRAMINE HCL 50 MG/ML VIAL IV PRN (10:18)
[2019-12-24] MEDS ORDERED: MEPERIDINE HCL/PF INJ 25 MG/1 ML DISP.SYRIN IV PRN (10:18)
[2019-12-24] MEDS ORDERED: FENTANYL CITRATE INJ/PF 100 MCG/2 ML AMPUL IV PRN ×3 (10:18)
--- NOTE | 2019-12-24 12:47 | Operative Report ---
Operative Report DATE OF SURGERY: 12/24/19 PREOPERATIVE DIAGNOSIS: Right Ankle Trimalleolar Fracture POSTOPERATIVE DIAGNOSIS: Right Ankle Trimalleolar Fracture OPERATION: Right Trimalleolar Ankle Open Reduction Internal Fixation SURGEON: ELSA LANDON JR ANESTHESIA: GA COMPLICATIONS: none ESTIMATED BLOOD LOSS: 30 PROCEDURE: They were brought to the operating suite and placed under general anesthesia. The splint was removed and skin was confirmed to be intact and was healthy for operative treatment. They were prepped and draped in standard sterile fashion. They were provided with 2 g of Ancef pre-operatively. After an appropriate timeout the limb was exsanguinated with Esmarch and tourniquet was inflated followed by marking out the right lateral malleolus. Fluoroscopy was utilized to localize the level of the fracture. An incision was made centered over this area. Careful dissection was performed until the fracture was exposed. We exposed and identified an oblique high fibula fracture with a butterfly fragment. I was able to place a lag screw via lag by technique. This allowed for near anatomic reduction. After this a plate was placed on the lateral fibula centered over the fracture site. The most distal screw hole was left available for potential syndesmotic fixation. This was all performed with the assistance of fluoroscopy. After excellent reduction and plate application all screws were tightened appropriately. After this we turned our attention to the medial malleolus. An incision was made to provide for ample visualization of the anterior medial malleolar shoulder. Under direct visualization this fragment was keyed in and held with a bone reduction forcep. This was followed with placement of 2 K wires were placed with the assistance of fluoroscopy ensured obtain appropriate positioning. After placement of these K wires I overdrilled the distal fragment and then placed 275 mm cannulated screws that obtained excellent purchase.. Following this, an external rotation stress test was performed and found the syndesmosis to be intact. In order to confirm, a large pointed reduction forcep was placed between the plate and the medial malleolus and upon placing tension and examining under fluoroscopy there was no difference between a compressed syndesmotic reduction versus that of removing the forcep. This was tested with both neutral mortise views as well as external rotation stress views. The wounds were copiously irrigated with dilute Betadine saline solution. Subcutaneous sutures were placed with inverted 2-0 interrupted Monocryl. Following approximation of the skin a 3-0 running nylon was placed in a horizontal mattress type fashion with intention to distribute some of the tension given some of her continued ecchymosis. Xeroform was placed over the wounds followed by 4 x 4's soft roll plaster posterior U type splint and Lokesh wrap. The patient tolerated the procedure well and was awakened from anesthesia and transferred to the PACU in stable condition.
[2019-12-24] MEDS ORDERED: DEXAMETHASONE SOD PHOS INJ 10 MG/1 ML VIAL IV ONE (12:48)
[2019-12-24] MEDS ORDERED: ZOLPIDEM TARTRATE 5 MG TABLET PO PRN (12:48)
[2019-12-24] MEDS ORDERED: NORMAL SALINE 1000 ML 1,000 ML IV PRN (12:48)
[2019-12-24] MEDS ORDERED: DIPHENHYDRAMINE HCL 25 MG CAPSULE PO PRN (12:48)
[2019-12-24] MEDS ORDERED: DOCUSATE SODIUM 100 MG CAPSULE PO PRN (12:48)
[2019-12-24] MEDS ORDERED: ONDANSETRON 4 MG TAB.RAPDIS PO PRN (12:48)
[2019-12-24] MEDS ORDERED: OXYCODONE HCL IR 5 MG TABLET PO PRN ×4 (12:48)
[2019-12-24] MEDS ORDERED: TRAMADOL HCL 50 MG TABLET PO PRN (12:48)
--- NOTE | 2019-12-24 13:10 | RADIOLOGY REPORT (SQ) ---
EXAM DESCRIPTION: NO CHG FLUORO; ANKLE RIGHT COMPLETE IMAGES COMPLETED DATE/TIME: 12/24/2019 12:21 pm REASON FOR STUDY: RIGHT ANKLE ORIF COMPARISON: None. FLUOROSCOPY TIME: 0.7 minutes 7 Images saved to PACS LIMITATIONS: None. PROCEDURE: ORIF right ankle FINDINGS: Images from fluoro document placement of a compression plate on the distal fibula and 2 ca nnulated screws through the medial malleolus. IMPRESSION: ORIF right ankle. Refer to operative note for further information. COMMENT: PQRS 6045F: Fluoroscopy time of the procedure is documented in the report. TECHNICAL DOCUMENTATION: JOB ID: [id number] 2010 [employer]- All Rights Reserved Reading location - IP/workstation name: [email or web address]
--- NOTE | 2019-12-24 13:10 | RADIOLOGY REPORT (SQ) ---
EXAM DESCRIPTION: NO CHG FLUORO; ANKLE RIGHT COMPLETE IMAGES COMPLETED DATE/TIME: 12/24/2019 12:21 pm REASON FOR STUDY: RIGHT ANKLE ORIF COMPARISON: None. FLUOROSCOPY TIME: 0.7 minutes 7 Images saved to PACS LIMITATIONS: None. PROCEDURE: ORIF right ankle FINDINGS: Images from fluoro document placement of a compression plate on the distal fibula and 2 ca nnulated screws through the medial malleolus. IMPRESSION: ORIF right ankle. Refer to operative note for further information. COMMENT: PQRS [id number]: Fluoroscopy time of the procedure is documented in the report. TECHNICAL DOCUMENTATION: JOB ID: [id number] 2010 [employer]- All Rights Reserved Reading location - IP/workstation name: [email or web address]
[2019-12-24] MEDS ORDERED: OXYCODONE HCL IR 5 MG TABLET ONE (13:18)
[2019-12-24] MEDS ORDERED: PANTOPRAZOLE SODIUM 20 MG TABLET.DR PO ONE (13:20)
[2019-12-24] MEDS ORDERED: TRANEXAMIC ACID INJ/PF 1,000 MG/10 ML SDV IV ONE (13:20)
--- NOTE | 2019-12-24 13:28 | RADIOLOGY REPORT (SQ) ---
EXAM DESCRIPTION: ANKLE RIGHT COMPLETE COMPLETE DATE/TIME: 12/24/2019 1:03 pm REASON FOR STUDY: post op S82.851A DISPLACED TRIMALLEOLAR FRACTURE OF RIGHT LOWER LEG, FINDINGS: Please see combined report for performance of procedure and radiologic supervision and int erpretation. IMPRESSION: Please see combined report for performance of procedure and radiologic supervision and i nterpretation. Reading location - IP/workstation name: [email or web address]
[2019-12-24] MEDS ORDERED: CEFAZOLIN 2 GM/D5W RTU 2 GM/50 ML RTUPB IV SCH (14:00)
[2019-12-24] MEDS ORDERED: KETOROLAC TROMETHAMINE INJ/PF 30 MG/1 ML SDV IV SCH (14:00)
[2019-12-24] MEDS ORDERED: CEFAZOLIN SODIUM 2 GM in DEXTROSE 5%-WATER 100 ML IV SCH (14:00)
[2019-12-24 14:09] VITALS: BP 142/83
[2019-12-24] MEDS ORDERED: ACETAMINOPHEN 325 MG TABLET PO SCH (18:00)
[2019-12-24] MEDS ORDERED: GABAPENTIN 100 MG CAPSULE PO SCH (22:00)
[2019-12-25] MEDS ORDERED: POLYETHYLENE GLYCOL 3350 POWDER 17 GM/1 PACKET PO SCH (10:00)
== END 2019-12-24 14:20 | disposition home or self-care (01) ==
LOC: OROUT 06:20
PROVIDERS: ATTEND Orthopaedic Surgery
DX: S82.851A Displaced trimalleolar fracture of right lower leg, initial encounter for closed fracture (principal); W19.XXXA Unspecified fall, initial encounter; Z79.82 Long term (current) use of aspirin; Z79.899 Other long term (current) drug therapy; Z87.891 Personal history of nicotine dependence
CPT/HCPCS: 36415; 85025; 87635; 81025; 80048; 81001; 73610; 64445; 76942; 01480; 27822; J2795; J2250; J3490 ×3; J1100; J3010 ×2; J2001; J2405; J2704; J0690; C9803; C1713; J7060

== ENCOUNTER 2020-02-05 09:47 | Observation (INO) | payer BC, MEDICAID ==
[2020-02-05 11:11] LABS: ABSOLUTE BASOPHILS # (AUTO) 0.1 10^3/uL (0.0-0.2); ABSOLUTE EOSINOPHILS # (AUTO) 0.2 10^3/uL (0.0-0.6); ABSOLUTE LYMPHOCYTES (AUTO) 1.5 10^3/uL (0.5-4.7); ABSOLUTE MONOCYTES (AUTO) 0.7 10^3/uL (0.1-1.4); ABSOLUTE NEUT (AUTO) 3.7 10^3/uL (1.7-8.2); BASOPHILS % (AUTO) 1.2 % (0-2); EOSINOPHILS % (AUTO) 2.7 % (0-6); HEMATOCRIT 43.2 % (36.0-47.0); HEMOGLOBIN 14.3 g/dL (12.0-15.5); LYMPHOCYTES % (AUTO) 24.5 % (13-45); MEAN CORPUSCULAR HEMOGLOBIN 28.2 pg (27.0-33.4); MEAN CORPUSCULAR HGB CONC 33.2 g/dL (32.0-36.0); MEAN CORPUSCULAR VOLUME 85 fl (80-97); MONOCYTES % (AUTO) 10.8 % (3-13); PLATELET COUNT 350 10^3/uL (150-450); RED BLOOD COUNT 5.09 10^6/uL (3.72-5.28); RED CELL DISTRIBUTION WIDTH 14.7 % (11.5-14.0); SEGMENTED NEUTROPHILS % (AUTO) 60.8 % (42-78); TOTAL CELLS COUNTED % (AUTO) 100 %; WHITE BLOOD COUNT 6.1 10^3/uL (4.0-10.5)
[2020-02-05 11:22] LABS: ANION GAP 11 (5-19); BLOOD UREA NITROGEN 8 mg/dL (7-20); CALCIUM 10.3 mg/dL (8.4-10.2); CARBON DIOXIDE 22 mmol/L (22-30); CHLORIDE 105 mmol/L (98-107); GLUCOSE 89 mg/dL (75-110); POTASSIUM 4.6 mmol/L (3.6-5.0)
[2020-02-05] MEDS ORDERED: KETOROLAC TROMETHAMINE 60 MG/2 ML SDV ONE (12:17)
[2020-02-05] MEDS ORDERED: FENTANYL CITRATE INJ/PF 100 MCG/2 ML AMPUL ONE ×3 (12:17→14:43)
[2020-02-05] MEDS ORDERED: ONDANSETRON HCL INJ/PF 4 MG/2 ML SDV ONE (12:17)
[2020-02-05] MEDS ORDERED: DEXAMETHASONE SOD PHOSPHATE INJ 4 MG/1 ML VIAL ONE (12:17)
[2020-02-05] MEDS ORDERED: MIDAZOLAM 2 MG/2 ML INJ ONE (12:17)
[2020-02-05] MEDS ORDERED: MORPHINE SULFATE 10 MG/ML INJ ONE (12:17)
[2020-02-05] MEDS ORDERED: PROPOFOL INJ 200 MG/20 ML VIAL IV ONE (12:18)
[2020-02-05] MEDS ORDERED: BUPIVACAINE HCL 0.5 % INJ/PF 30 ML SDV ONE (12:30)
[2020-02-05] MEDS ORDERED: CEFAZOLIN 2 GM/D5W RTU 2 GM/50 ML RTUPB IV ONE (12:34)
[2020-02-05] MEDS ORDERED: MEPERIDINE HCL/PF INJ 25 MG/1 ML DISP.SYRIN IV PRN (13:15)
[2020-02-05] MEDS ORDERED: PROMETHAZINE HCL INJ 25 MG/1 ML VIAL IV PRN ×2 (13:15)
[2020-02-05] MEDS ORDERED: FENTANYL CITRATE INJ/PF 100 MCG/2 ML AMPUL IV PRN ×3 (13:15)
[2020-02-05] MEDS ORDERED: OXYCODONE-ACETAMINOPHEN 5-325 MG TABLET PO PRN ×2 (13:15)
[2020-02-05] MEDS ORDERED: MORPHINE SULFATE 10 MG/ML INJ IV PRN ×3 (13:15→14:51)
[2020-02-05] MEDS ORDERED: DIPHENHYDRAMINE HCL 50 MG/ML VIAL IV PRN (13:15)
[2020-02-05] MEDS ORDERED: VANCOMYCIN HCL INJ 1000 MG VIAL ONE (13:38)
--- NOTE | 2020-02-05 14:02 | RADIOLOGY REPORT (SQ) ---
EXAM DESCRIPTION: ANKLE RIGHT AP/LATERAL IMAGES COMPLETED DATE/TIME: 02/05/2020 1:54 pm REASON FOR STUDY: HARDWARE REMOVAL R-ANKLE S82.91XA UNSP FRACTURE OF RIGHT LOWER LEG, INIT FOR CLOS FX COMPARISON: 12/24/2019 FLUOROSCOPY TIME: Less than 10 seconds. Spot images saved to PACS. TECHNIQUE: Intra-operative images acquired during surgical procedure to evaluate progress. NUMBER OF IMAGES: 2 LIMITATIONS: None. FINDINGS: Fluoroscopy was provided for intraoperative procedure. Please refer to the operative repo rt for further discussion. IMPRESSION: IMAGE(S) OBTAINED DURING PROCEDURE. COMMENT: Quality ID 145: Final reports for procedures using fluoroscopy that document radiation exp osure indices, or exposure time and number of fluorographic images (if radiation exposure indices are not available) Please consult full operative report of the attending physician for description of the procedure. TECHNICAL DOCUMENTATION: JOB ID: [id number] 2010 [employer]- All Rights Reserved Reading location - IP/workstation name: [email or web address]
--- NOTE | 2020-02-05 14:02 | RADIOLOGY REPORT (SQ) ---
EXAM DESCRIPTION: NO CHG FLUORO COMPLETE DATE/TIME: 02/05/2020 1:54 pm REASON FOR STUDY: HARDWARE REMOVAL R-ANKLE S82.91XA UNSP FRACTURE OF RIGHT LOWER LEG, INIT FOR CLOS FX FINDINGS: Please see combined report for performance of procedure and radiologic supervision and int erpretation. IMPRESSION: Please see combined report for performance of procedure and radiologic supervision and i nterpretation. Reading location - IP/workstation name: [email or web address]
[2020-02-05] MEDS ORDERED: SUGAMMADEX SODIUM 200 MG/2 ML SDV IV ONE (14:17)
--- NOTE | 2020-02-05 14:46 | Operative Report ---
Operative Report DATE OF SURGERY: 02/05/20 PREOPERATIVE DIAGNOSIS: Right bimalleolar ankle fracture with subsequent wound drainage. POSTOPERATIVE DIAGNOSIS: Postoperative wound drainage OPERATION: Right ankle removal of hardware, irrigation and debridement, application of wound VAC. SURGEON: ELSA LANDON JR ANESTHESIA: GA TISSUE REMOVED OR ALTERED: Culture swab, superficial and deep culture specimens taken COMPLICATIONS: None ESTIMATED BLOOD LOSS: 20 cc PROCEDURE: Patient is approximately 6 weeks postop from a right ankle bimalleolar open reduction internal fixation. She has had intermittent drainage. I have been evaluating her in the office, there have been times where she seems to heal the wound and there is times where she returns with subsequent breakout of drainage and reports of substantial drainage at home. There is never been any erythema, sweats fever chills or signs of systemic infection or overt signs of local infection. Drainage has not been purulent but purely serous. Due to ongoing drainage the decision was made to proceed with I&D of the right ankle. At this time given it is 6 weeks postop and she has no pain removal of hardware is an additional part of the plan in order to definitively treat this wound. Patient was brought operative suite laid supine on the operative table. They are provided with 2 g Ancef preoperatively. They are placed under general anesthetic. The right lower extremities and prepped and draped in sterile fashion. An appropriate timeout was performed and the tourniquet was inflated without exsanguination. There is approximately a 2 cm x 5 mm eschar that appears healthy today. Prior incision was utilized both proximal and distal to this to allow exposure. Skin incision was made followed by blunt dissection with Metzenbaum scissors. Culture was taken with a culture swab followed by specimen for culture with a rongeur. We then proceeded through the fascia that had healed over the plate deep. There is no obvious communication between the plate and bone and the skin. We proceeded to expose the plate and then deep cultures were taken. Screws were removed with assistance of fluoroscopy followed by removal of the plate. Further culture was also taken and applied the same deep specimen cup. After this the ulcerated tissue was ellipsed from the prior wound edges. The wound was then copiously irrigated with dilute Betadine solution, 6 L of Pulsavac. After this was completed I explored the wound for any other necrotic tissue which was not to be found. The fracture site had some mobility but there was callus formation apparent. 1 g of vancomycin was applied to the wound and spread both proximally and distally along the bone. 2-0 Monocryl suture was placed in inverted fashion subcutaneously followed by 3-0 nylon trauma sutures. There was an area of approximately 1 cm x 2 mm that were not tightly approximated due to the prior ellipse. Local anesthetic was applied, quarter percent Marcaine. We placed a Adaptic over the wound and then overlaid a black wound VAC sponge followed by application of the wound VAC. This obtained good suction. The tourniquet was deflated. Web roll was applied followed by a Lokesh wrap. Patient was then awakened from anesthesia and then transferred to PACU in stable condition.
[2020-02-05] MEDS ORDERED: NORMAL SALINE 1000 ML 1,000 ML IV ONE (14:51)
[2020-02-05] MEDS ORDERED: DOCUSATE SODIUM 100 MG CAPSULE PO PRN (14:51)
[2020-02-05] MEDS ORDERED: ZOLPIDEM TARTRATE 5 MG TABLET PO PRN (14:51)
[2020-02-05] MEDS ORDERED: DIPHENHYDRAMINE HCL 25 MG CAPSULE PO PRN (14:51)
[2020-02-05] MEDS ORDERED: ONDANSETRON 4 MG TAB.RAPDIS PO PRN (14:51)
[2020-02-05] MEDS ORDERED: OXYCODONE HCL IR 5 MG TABLET PO PRN ×4 (14:51)
[2020-02-05] MEDS ORDERED: TRAMADOL HCL 50 MG TABLET PO PRN (14:51)
--- NOTE | 2020-02-05 16:03 | RADIOLOGY REPORT (SQ) ---
EXAM DESCRIPTION: PICC INSERTION IMAGES COMPLETED DATE/TIME: 02/05/2020 3:36 pm REASON FOR STUDY: Infection S82.91XA UNSP FRACTURE OF RIGHT LOWER LEG, INIT FOR CLOS FX COMPARISON: None. FLUOROSCOPY TIME: 48 seconds of fluoroscopy was used. 1 images saved to PACS. TECHNIQUE: Fluoroscopic and ultrasound guided PICC placement. LIMITATIONS: None. PROCEDURE: After written consent and assessment were obtained, the patient was brought into the fluo roscopy room and placed supine on the table. Ultrasound evaluation of potential access sites were per formed. After successfully identifying a patent left basilic vein, the left arm was prepped and drape d in a sterile fashion along with the ultrasound probe. The entry site was anesthetized with 1% lidoc azucena. A 21 gauge 7 cm needle was advanced through the skin and into the basilic vein under live ultra sound guidance. An ultrasound image was saved to PACS confirming access site. A .018 guide wire was then inserted through the needle and into the venous system. The needle was then removed and an 11 b lade scalpel was used to make a 1cm skin incision. A 5 fr peel-away sheath was advanced over the wir e and into the venous system. A measurement was then made using the existing wire and live fluoroscop ic guidance. The wire was then removed and trimmed. The PICC was advanced through the peel-away sheat h and into the venous system. The peel-away sheath was removed and the catheter was adhered to the pa tients arm with a stat lock. The catheter was then aspirated and flushed and a sterile bandage was pl aced over the access site. A fluoroscopic spot image was saved to PACS confirming the catheter tip w ithin the superior vena cava. IMPRESSION: SUCCESSFUL PLACEMENT OF A 5 FR DUAL LUMEN 41 CM PICC IN THE LEFT BASILIC VEIN. COMMENT: Patient medication list reviewed: Yes- Quality ID# 130:Eligible professional attests to doc umenting in the medical record they obtained, updated, or reviewed the patient's current medications. . Quality ID 145: Final reports for procedures using fluoroscopy that document radiation exposure leander jazlyn, or exposure time and number of fluorographic images (if radiation exposure indices are not avail able) Quality ID #76: The patient was prepped and draped using maximum sterile barrier technique including cap, mask, sterile gown, sterile gloves, a large sterile sheet, hand hygiene, and 2% Chlorhexidine fo r cutaneous antisepsis. When ultrasound is used, sterile ultrasound techniques are followed requiring sterile gel and sterile probes. TECHNICAL DOCUMENTATION: JOB ID: [id number] 2010 [employer]- All Rights Reserved rev-08/23 Reading location - IP/workstation name: [email or web address]
[2020-02-05] MEDS ORDERED: NORMAL SALINE 10 ML SDV (AFTER EACH USE) IV PRN (16:30)
--- NOTE | 2020-02-05 17:17 | Progress Note ---
Provider Note Provider Note: [facility] ID Telephone Advice Consultation Chart reviewed. Patient not examined. This is a 24-year-old woman who on December 14 fell from her feet after tripping over a loose brick. She had a trimalleolar fracture for which she had surgery, ORIF on December 23. After the surgery she was doing well but there were p eriods of time where there was a serous drainage from the surgical site. There has been 6 weeks from the surgery and she was taken to the OR today for removal of the plate and screws. Tissue was sent for cultures. Per notes, she denied any signs or symptoms of infection. There was no erythema or significant purulence, but serosanguineous drainage only. ID consulted for recommendations. Allergies: Penicillins Allergy (Mild, Verified 02/04/20 14:17) rash Medications: No Home Medications 02/04/20 Vital Signs: Temp Pulse Resp BP Pulse Ox 97.8 F 75 16 113/66 99 02/05/20 16:17 02/05/20 16:17 02/05/20 16:17 02/05/20 16:17 02/05/20 16:17 Intake & Output 02/04/20 02/05/20 02/06/20 06:59 06:59 06:59 Intake Total 7259 Output Total 6069 Balance 1190 Weight 90.26 kg 90.26 kg Weight/Height Weight 90.26 kg Height 5 ft 1 in Laboratories: 02/05/20 10:37 02/05/20 10:37 MCV 85 fl (80-97) 02/05/20 10:37 MCH 28.2 pg (27.0-33.4) 02/05/20 10:37 MCHC 33.2 g/dL (32.0-36.0) 02/05/20 10:37 RDW 14.7 % (11.5-14.0) H 02/05/20 10:37 Seg Neutrophils % 60.8 % (42-78) 02/05/20 10:37 Chloride 105 mmol/L (98-107) 02/05/20 10:37 Carbon Dioxide 22 mmol/L (22-30) 02/05/20 10:37 Anion Gap 11 (5-19) 02/05/20 10:37 Est GFR ( Amer) > 60 (>60) 10/30/20 10:37 Glucose 89 mg/dL (75-110) 02/05/20 10:37 Calcium 10.3 mg/dL (8.4-10.2) H 02/05/20 10:37 Microbiology: Tissue cultures 02/04 In process Radiology: Ankle X-Ray 02/05/20 00:00 IMPRESSION: IMAGE(S) OBTAINED DURING PROCEDURE. Fluoroscopy 02/05/20 00:00 IMPRESSION: Please see combined report for performance of procedure and radi ologic supervision and interpretation. PICC Line Insertion 02/05/20 00:00 IMPRESSION: SUCCESSFUL PLACEMENT OF A 5 FR DUAL LUMEN 41 CM PICC IN THE LEFT BASILIC VEIN. Assessment and Recommendations: Patient evaluated due to non healing wound after ORIF of trimaleollar fracture 6 weeks ago. She is s/p debridement and hardware removal. Cultures are in process. Will recommend baseline ESR and CRP. Once cultures are finalized, will give final recommendations. If patient needs to leave the hospital during the weekend before cultures are finalized, can consider ciprofloxacon 750 mg po bid and Bactrim DS BID awaiting for cultures, but ideally would wait until cultures are processed to arrange IV antibiotics. She will need 6 weeks of therapy, PICC line already placed. Will follow cultures to give final plan. Please call if questions/updates. Gladys Thakur MD [facility] ID [phone]
[2020-02-05] MEDS: CEFAZOLIN SODIUM 2 GM in DEXTROSE 5%-WATER 100 ML IV SCH (18:55)
[2020-02-05] MEDS: ACETAMINOPHEN 325 MG TABLET PO SCH (19:00)
[2020-02-05 20:36] LABS: APPEARANCE,URINE CLEAR; BILIRUBIN,URINE NEGATIVE (NEGATIVE); COLOR,URINE YELLOW; GLUCOSE, URINE NEGATIVE (NEGATIVE); KETONES,URINE NEGATIVE (NEGATIVE); LEUKOCYTE ESTERASE,URINE NEGATIVE (NEGATIVE); NITRITE,URINE NEGATIVE (NEGATIVE); PROTEIN,URINE 30 mg/dL (NEGATIVE); URINE SPECIFIC GRAVITY 1.017; UROBILINOGEN,URINE NEGATIVE mg/dL (<2.0)
[2020-02-05] MEDS ORDERED: CEFAZOLIN 2 GM/D5W RTU 2 GM/50 ML RTUPB IV SCH (22:00)
[2020-02-05] MEDS ORDERED: NORMAL SALINE 10 ML SDV (SCHEDULED) IV SCH (22:00)
[2020-02-06] MEDS: CEFAZOLIN SODIUM 2 GM in DEXTROSE 5%-WATER 100 ML IV SCH ×2 (01:22→09:18)
[2020-02-06] MEDS: ACETAMINOPHEN 325 MG TABLET PO SCH ×3 (05:49→12:26)
--- NOTE | 2020-02-06 09:26 | PDOC PROGRESS REPORT ---
Subjective Progress Note for:: 02/06/20 Subjective:: Patient seen and examined this morning, no acute events overnight, she reports no pain at this time. Has not yet ambulated. Reason For Visit: RIGHT ANKLE WOUND DEHISCENSE Physical Exam Vital Signs: Temp Pulse Resp BP Pulse Ox 98.1 F 77 16 123/63 99 02/06/20 08:49 02/06/20 07:24 02/06/20 07:24 02/06/20 07:24 02/06/20 07:24 Intake & Output 02/05/20 02/06/20 02/07/20 06:59 06:59 05:59 Intake Total 8454 Output Total 6069 Balance 2385 Weight 90.26 kg 90.26 kg Physical Exam: No acute distress, alert and orient x3 Right lower extremity -Pulses 2+ distally -Compartments soft -Sensation grossly intact to L3-4-5 S1 -Motor grossly intact to EHL TA gastroc and quad Dressings clean dry intact, well placed in a lightly compressive sterile dressing No output into the wound VAC at this time, wound VAC to without any signs of leak. Results Laboratory Results: 02/05/20 10:37 02/05/20 10:37 02/05/20 02/05/20 02/05/20 10:00 10:37 10:37 WBC 6.1 RBC 5.09 Hgb 14.3 Hct 43.2 MCV 85 MCH 28.2 MCHC 33.2 RDW 14.7 H Plt Count 350 Seg Neutrophils % 60.8 Sodium 137.9 Potassium 4.6 Chloride 105 Carbon Dioxide 22 Anion Gap 11 BUN 8 Creatinine 0.64 Est GFR ( Amer) > 60 Glucose 89 Calcium 10.3 H C-Reactive Protein Urine Color YELLOW Urine Appearance CLEAR Urine pH 7.0 Ur Specific [place] 1.017 Urine Protein 30 H Urine Glucose (UA) NEGATIVE Urine Ketones NEGATIVE Urine Blood NEGATIVE Urine Nitrite NEGATIVE Ur Leukocyte Esterase NEGATIVE Urine WBC (Auto) 1 Urine RBC (Auto) 0 02/05/20 02/06/20 17:14 07:40 WBC RBC Hgb Hct MCV MCH MCHC RDW Plt Count Seg Neutrophils % Sodium Potassium Chloride Carbon Dioxide Anion Gap BUN Creatinine Est GFR ( Amer) Glucose Calcium C-Reactive Protein < 5.0 6.5 Urine Color Urine Appearance Urine pH Ur Specific [place] Urine Protein Urine Glucose (UA) Urine Ketones Urine Blood Urine Nitrite Ur Leukocyte Esterase Urine WBC (Auto) Urine RBC (Auto) Impressions: Ankle X-Ray 02/05/20 00:00 IMPRESSION: IMAGE(S) OBTAINED DURING PROCEDURE. Fluoroscopy 02/05/20 00:00 IMPRESSION: Please see combined report for performance of procedure and radiologic supervision and interpretation. PICC Line Insertion 02/05/20 00:00 IMPRESSION: SUCCESSFUL PLACEMENT OF A 5 FR DUAL LUMEN 41 CM PICC IN THE LEFT B ASILIC VEIN. Assessment & Plan - Diagnosis (1) Wound dehiscence Is this a current diagnosis for this admission?: Yes Plan: At this time I am unsure if this is septic or aseptic, cultures pending -Have discussed the case with Dr. Thakur, infectious disease, who will make recommendations pending final cultures. There is potential for the patient to be discharged home today however it will likely be tomorrow We will need to discuss with adult protective caseworker organizing home wound VAC changes, antibiotic delivery, and physical therapy given that the patient does not have transportation and is unable to drive at this time. I will follow cultures today I have called case management and awaiting a call back in order to further discuss disposition and potential discharge today. She will need wound VAC changes every 3 to 5 days -Continue current antibiotics until further recommendation. - Time Time Spent with patient: Less than 15 minutes
[2020-02-06] MEDS ORDERED: POLYETHYLENE GLYCOL 3350 POWDER 17 GM/1 PACKET PO SCH (10:00)
[2020-02-06] MEDS ORDERED: ASPIRIN 325 MG TABLET PO SCH (10:00)
--- NOTE | 2020-02-06 14:14 | Discharge Summary ---
Discharge Summary (SDC) - Discharge Final Diagnosis: Right ankle post operative wound drainage Date of Surgery: 02/05/20 Discharge Date: 02/06/20 Condition: Stable Treatment or Instructions: Patient is to maintain her wound VAC. She is to see me on her scheduled appointment. She is to bring wound VAC supplies to the office so that I can change on her business otherwise she has to have home wound VAC dressing changes every 3 to 5 days She is to have home physical therapy to encourage her to proceed is weightbearing as tolerated in the cam walker boot hopefully to transition her off of crutches and to encourage regular mobilization and activity She is to take antibiotics as prescribed Return to my office for any acute changes or needs. Prescriptions: Sulfamethoxazole/Trimethoprim [Septra-Ds 800-160 mg Tablet] 1 tab PO BID 42 Days #28 tablet Referrals: JANA ARZATE PA-C [Primary Care Provider] - Discharge Diet: As Tolerated Respiratory Treatments at Home: Deep Breathing/Coughing Discharge Activity: Activity As Tolerated, No Driving, Keep Legs Elevated, No tub bath, Walk Frequently Home Care Assistance: Home Health Activities Provided by Home Health Agency: Physical Therapy Report the Following to Your Physician Immediately: Shortness of Breath, Fever over 101 Degrees, Unusual Bleeding, Drainage-Yellow
[2020-02-06 14:35] VITALS: BP 113/66
[2020-02-06] MEDS ORDERED: SULFAMETHOXAZOLE/TRIMETHOPRIM 800-160 MG TABLET PO SCH (18:00)
[2020-02-08] MEDS ORDERED: CEFAZOLIN 2 GM/D5W RTU 2 GM/50 ML RTUPB IV SCH (22:00)
== END 2020-02-06 15:06 | disposition home health service (06) ==
LOC: OROUT 09:47 → INOR 14:52 → 4S 15:38
PROVIDERS: ADMIT Orthopaedic Surgery; ATTEND Orthopaedic Surgery
DX: T81.89XA Other complications of procedures, not elsewhere classified, initial encounter (principal); T81.31XA Disruption of external operation (surgical) wound, not elsewhere classified, initial encounter; T81.42XA Infection following a procedure, deep incisional surgical site, initial encounter; A49.01 Methicillin susceptible Staphylococcus aureus infection, unspecified site; Y83.8 Other surgical procedures as the cause of abnormal reaction of the patient, or of later complication, without mention of misadventure at the time of the procedure; S82.841S Displaced bimalleolar fracture of right lower leg, sequela; W01.0XXS Fall on same level from slipping, tripping and stumbling without subsequent striking against object, sequela; Z88.0 Allergy status to penicillin; Z03.818 Encounter for observation for suspected exposure to other biological agents ruled out
CPT/HCPCS: 99281; 36415; 87070; 87205; 85025; 85652; 87075; 86140 ×2; 87077; 80048; 81001; 87186; 73600; 36573; 97530; 97110; 97116; 97162; 01480; 20680; 97607; G0378 ×2; C1769; U0003; J2250; J3490 ×2; J0690 ×3; J1100; J1885; J3010; J2405; J7060 ×2; J7030; J2704; J3370; J1642 ×2; C9803; 87635; J2270

== ENCOUNTER 2020-05-04 15:49 | Emergency (ER) | payer BC, MEDICAID ==
[2020-05-04 16:01] VITALS: BP 129/82
--- NOTE | 2020-05-04 16:02 | ER Document Report ---
HPI - HPI Patient complains to provider of: sorethroat Time Seen by Provider: 05/04/20 15:54 Onset: Yesterday Onset/Duration: Gradual Quality of pain: Achy Pain Level: 2 Context: Patient presents complaining of sore throat since yesterday. Patient denies any fever or cough. Patient states that she is concerned she may have had a tonsillar stone that she was able to get out earlier today. Associated Symptoms: Sore throat. denies: Earache, Fever, Nausea, Vomiting, Rhinnorhea Exacerbated by: Denies Relieved by: Denies Similar symptoms previously: Yes Recently seen / treated by doctor: No - ROS ROS below otherwise negative: Yes Systems Reviewed and Negative: Yes All other systems reviewed and negative - CONSTITUTIONAL Constitutional: DENIES: Fever, Chills - EENT EENT: REPORTS: Sore Throat. DENIES: Ear Pain - RESPIRATORY Respiratory: DENIES: Coughing - GASTROINTESTINAL Gastrointestinal: DENIES: Nausea, Patient vomiting, Diarrhea - REPRODUCTIVE LMP: 05/03/2020 Reproductive: DENIES: : - DERM Skin Color: Normal Skin Problems: None Past Medical History - General Information source: Patient - Social History Smoking Status: Never Smoker Chew tobacco use (# tins/day): No Frequency of alcohol use: None Drug Abuse: None Occupation: food service substitute Family History: Reviewed & Not Pertinent Patient has homicidal ideation: No - Medical History Medical History: Negative Pulmonary Medical History: Denies: Hx Asthma, Hx Bronchitis, Hx COPD, Hx Pneumonia, Hx Tuberculosis Neurological Medical History: Denies: Hx Cerebrovascular Accident, Hx Seizures, Hx Parkinson's Disease Renal/ Medical History: Denies: Hx End Stage Renal Disease, Hx Kidney Stones GI Medical History: Denies: Hx Cirrhosis, Hx Gastroesophageal Reflux Disease, Hx Ulcer Musculoskeletal Medical History: Denies Hx Arthritis, Denies Hx Multiple Sclerosis, Reports Hx Musculoskeletal Deformity, Reports Hx Musculoskeletal Trauma Psychiatric Medical History: Reports: Hx Depression - depression Denies: Hx Bipolar Disorder, Hx Schizophrenia Traumatic Medical History: Reports: Hx Fractures - Hip and knee Infectious Medical History: Denies: Hx MRSA Past Surgical History: Reports: Hx Section - x1, Hx Orthopedic Surgery - rt ankle x2, Hx Urinary Tract Surgery - reflux repair - Immunizations Immunizations up to date: Yes Hx Diphtheria, Pertussis, Tetanus Vaccination: Yes Vertical Provider Document - CONSTITUTIONAL Agree With Documented VS: Yes Exam Limitations: No Limitations General Appearance: WD/WN, No Apparent Distress - INFECTION CONTROL TRAVEL OUTSIDE OF THE [place] IN LAST 30 DAYS: No - HEENT HEENT: Atraumatic, Normocephalic, Pharyngeal Tenderness, Pharyngeal Erythema. negative: Pharyngeal Exudate, Tympanic Membrane Red, Tympanic Membrane Bulging - NECK Neck: Normal Inspection, Supple, Lymphadenopathy-Left, Lymphadenopathy-Right - RESPIRATORY Respiratory: Breath Sounds Normal, No Respiratory Distress - CARDIOVASCULAR Cardiovascular: Regular Rate, Regular Rhythm, No Murmur - BACK Back: Normal Inspection - MUSCULOSKELETAL/EXTREMETIES Musculoskeletal/Extremeties: MAEW, FROM - NEURO Level of Consciousness: Awake, Alert, Appropriate Motor/Sensory: No Motor Deficit - DERM Integumentary: Warm, Dry, No Rash Course - Re-evaluation Re-evalutation: 05/04/20 17:06 Patient's rapid strep test negative, no concern for [employer] or any potential airway compromise. Throat cultures pending. Good return precautions discussed with patient. - Laboratory Results Critical Laboratory Results Reviewed: No Critical Results - Radiology Results Critical Radiology Results Reviewed: No Critical Results Discharge - Discharge Clinical Impression: Sore throat Condition: Stable Disposition: HOME, SELF-CARE Instructions: Sore Throat ([facility]) Additional Instructions: Return immediately for any new or worsening symptoms Followup with your primary care provider, call tomorrow to make a followup appointment Throat culture is pending, we will call if you need any different treatment Prescriptions: Naproxen [Naprosyn 250 Nmg Tablet] 1 tab PO BID #14 tablet Forms: Return to Work [facility] [Provider Group] - Follow up as needed
== END 2020-05-04 16:54 | disposition home or self-care (01) ==
LOC: ER 15:49
DX: J02.9 Acute pharyngitis, unspecified (principal); R59.0 Localized enlarged lymph nodes
CPT/HCPCS: 87070; 87077; 87880; 99283